=== PATIENT | female | born 1990 | race African-American/Black ===

== ENCOUNTER 2021-11-19 16:48 | Outpatient (CLI) | payer OTHER ==
--- NOTE | 2021-11-20 08:55 | Ultrasound Report ---
PROCEDURE: OB First Trimester INDICATIONS: SUPERV NL PREG, DATING OUTSIDE/PRIOR DATING DATA: Last menstrual period (LMP): August 27, 2021. LMP-based estimated date of delivery (JACQUELINE): June 03, 2022. First dating scan (date ): November 19, 2021. Estimated date of delivery (JACQUELINE) from first dating scan: June 03, 2022. TECHNIQUE: Real-time scanning was performed of the fetus and maternal pelvic organs, with image documentation. COMPARISON: None. FINDINGS: A 3.1 x 0.9 x 3.4 cm hypoechoic area is seen adjacent to the gestational sac, compatible w ith a subchorionic hemorrhage. Embryo: [place]-rump length measures 5.3 cm, compatible with a 12 week gestation Heart rate: 160 bpm Measurement variability in dating: +/- 4 weeks by LMP, +/- 7 days by mean sac diameter (use before 6 weeks gestation if crown-rump length not able to be measured), +/- 5 days by crown-rump length (6-12 weeks gestation). Maternal organs: Ovaries demonstrate a right corpus luteum. IMPRESSION: Early live single intrauterine gestation. Reviewed by: Cooper Liu MD on 11/20/2021 8:53 AM PDT Approved by: Cooper Liu MD on 11/20/2021 8:53 AM PDT Station ID: [id number]
== END 2021-11-19 16:49 | disposition home or self-care (01) ==
LOC: DI 16:48
PROVIDERS: ATTEND Obstetrics & Gynecology
DX: O20.8 Other hemorrhage in early pregnancy (principal); Z3A.12 12 weeks gestation of pregnancy